=== PATIENT | male | born 2000 | race Caucasian/White ===

== ENCOUNTER 2018-01-23 16:31 | Emergency (ER) | payer BC, SELFPAY ==
[2018-01-23 16:41] VITALS: BP 146/90; PULSE 80; RESP 16; TEMP 36.6; O2SAT 100
--- NOTE | 2018-01-23 17:21 | W.ED.GENAD ---
Discharge Plan Disposition Patient Disposition: AGAINST MEDICAL ADVICE Condition: Good Discharge Details Chief Complaint: Abd Prob Clinical Impression: Abdominal pain Primary Care Provider: Thad Rubio ED Provider: Joe Jennings Home Meds and New Rx's Prescriptions: No Action No Known Home Meds RF: 0 Discharge Instructions Instructions: Abdominal Pain (ED) Additional Instructions: Feel free to return to the emergency department for any new or worsening symptoms including nausea vomiting, fever chills, return of severe persistent abdominal pain. Otherwise follow-up with your primary care provider as needed for reassessment Referrals: Primary Care Provider [Outside] (Care management will assist in arranging a primary care provider for you that you can follow-up with as needed) Discharge Data Discharge Date/Time-TO BE ENTERED AT DEPARTURE: 01/23/18 17:35 Medical Decision Making Patient presenting to the emergency department with complaint of left upper quadrant abdominal pain. Patient states that he had been drinking last night and ate some heavy meals today and while spending time with his mother he started having severe sharp abdominal pain. This seemed to wax and wane and is now resolved but mother was concerned. Patient does state that this happened a couple weeks ago after heavily drinking as well. Patient denies any fever chills, nausea vomiting, pain or discomfort. Palpation of the abdomen is soft and shows a nonsurgical belly but given that discomfort has occurred now twice after heavily drinking there is concern for possible pancreatitis versus gastritis. I would prefer to do lab testing but patient denied any tests or procedures and states that he is only here because his mother wanted him checked out. I discussed the risk versus benefit with both patient and mother and patient states that he is refusing any further testing or treatment and would prefer to go home. Patient was encouraged to return for any new or worsening symptoms. 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 Patient is agreeable to having care management assist in getting him a primary care doctor to follow-up with as needed patient was placed on PCP establishment list. HPI General Mode of arrival: ambulatory. Date/Time Provider Initiated Documentation: 01/23/18 16:50. Limitations to Documentation: no limitations. Information obtained by: patient, family and RN notes reviewed. History of Present Illness 17 year old M presents to the emergency department with the chief complaint of Abd pain, described as mild, with intensity rated at 6. Quality is described as sharp, and is localized to the abdomen. Patient reports no radiation. Patient started experiencing this hour(s) (4) and it has been now resolved. No relieving factors improve symptom(s), No exacerbating factors reported . Patient notes no other symptoms.. Patient did receive the following treatments prior to arrival, none Related Data Home Medications Medication Instructions Recorded Confirmed Unknown [No Known Home Meds] 01/23/18 01/23/18 Allergies Allergy/AdvReac Type Severity Reaction Status Date / Time No Known Allergies Allergy Unverified 01/23/18 16:44 General Stated Complaint: Abd Prob FOREIGN: 3 Review of Systems Constitutional Denies body ache(s), Denies chills and Denies fever(s) Cardiovascular Denies chest pain and Denies dyspnea Respiratory Denies dyspnea Gastrointestinal Reports as per HPI, Reports abdominal pain, Reports belching, Denies diarrhea, Denies nausea and Denies vomiting Genitourinary Denies dysuria, Denies flank pain, Reports penile discharge, Denies testicular pain, Reports urinary frequency and Denies urinary urgency Integumentary/Breasts Denies rash Neurologic Denies confusion and Denies sensory deficit Psychiatric Denies confusion PFSH Social History Smoking/Tobacco Use Status: Never Exam Const General: cooperative, no acute distress and not ill appearing Orientation: alert, awake and oriented x3 HENMT Mouth: moist mucous membranes Resp Effort & Inspection: normal respiratory effort, able to speak in complete sentences and no respiratory distress Auscultation: clear to auscultation bilaterally Cardio Rate: regular rate Rhythm: regular rhythm Heart Sounds: S1 normal and S2 normal GI Inspection: normal to inspection Palpation: soft, no hepatosplenomegaly, not firm, no guarding, no hernias, no masses, no pulsatile masses, not rigid and nontender Auscultation: normal bowel sounds Back/Spine/Pelvis Back: no CVA tenderness Skin General skin exam: no rashes or lesions noted Neuro General: alert, awake, oriented x3, moves all extremities and no focal motor deficits Sensory Exam: no sensory deficits noted Course Vital Signs Temperature 36.6 C 01/23/18 16:41 Pulse 80 01/23/18 16:41 Respiratory Rate 16 01/23/18 16:41 Blood Pressure 146/90 H 01/23/18 16:41 Pulse Oximetry 100 01/23/18 16:41 Temperature 36.6 C 01/23/18 16:41 Temperature Source Temporal Artery Scan 01/23/18 16:41 Pulse 80 01/23/18 16:41 Respiratory Rate 16 01/23/18 16:41 Respiratory Effort 01/23/18 16:45 Blood Pressure 146/90 H 01/23/18 16:41 Blood Pressure Position Sitting 01/23/18 16:41 Pulse Oximetry 100 01/23/18 16:41 Oxygen Delivery Method Room Air 01/23/18 16:41 Oxygen Flow Rate 0 01/23/18 16:41 Pain Level 0 01/23/18 16:41
--- NOTE | 2018-01-23 17:28 | ED.GENADUL_ITS ---
Discharge Plan Disposition Patient Disposition: AGAINST MEDICAL ADVICE Condition: Good Discharge Details Chief Complaint: Abd Prob Clinical Impression: Abdominal pain Primary Care Provider: Thad Rubio ED Provider: Joe Jennings Home Meds and New Rx's Prescriptions: No Action No Known Home Meds RF: 0 Discharge Instructions Instructions: Abdominal Pain (ED) Additional Instructions: Feel free to return to the emergency department for any new or worsening symptoms including nausea vomiting, fever chills, return of severe persistent abdominal pain. Otherwise follow-up with your primary care provider as needed for reassessment Referrals: Primary Care Provider [Outside] (Care management will assist in arranging a primary care provider for you that you can follow-up with as needed) Discharge Data Discharge Date/Time-TO BE ENTERED AT DEPARTURE: 01/23/18 17:35 Medical Decision Making Patient presenting to the emergency department with complaint of left upper quadrant abdominal pain. Patient states that he had been drinking last night and ate some heavy meals today and while spending time with his mother he started having severe sharp abdominal pain. This seemed to wax and wane and is now resolved but mother was concerned. Patient does state that this happened a couple weeks ago after heavily drinking as well. Patient denies any fever chills, nausea vomiting, pain or discomfort. Palpation of the abdomen is soft and shows a nonsurgical belly but given that discomfort has occurred now twice after heavily drinking there is concern for possible pancreatitis versus gastritis. I would prefer to do lab testing but patient denied any tests or procedures and states that he is only here because his mother wanted him checked out. I discussed the risk versus benefit with both patient and mother and patient states that he is refusing any further testing or treatment and would prefer to go home. Patient was encouraged to return for any new or worsening symptoms. 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 Patient is agreeable to having care management assist in getting him a primary care doctor to follow-up with as needed patient was placed on PCP establishment list. HPI General Mode of arrival: ambulatory . Date/Time Provider Initiated Documentation: 01/23/18 16:50 . Limitations to Documentation: no limitations . Information obtained by: patient, family and RN notes reviewed . History of Present Illness 17 year old M presents to the emergency department with the chief complaint of Abd pain, described as mild, with intensity rated at 6. Quality is described as sharp, and is localized to the abdomen. Patient reports no radiation. Patient started experiencing this hour(s) (4) and it has been now resolved. No relieving factors improve symptom(s), No exacerbating factors reported . Patient notes no other symptoms.. Patient did receive the following treatments prior to arrival, none Related Data Home Medications Medication Instructions Recorded Confirmed Unknown [No Known Home Meds] 01/23/18 01/23/18 Allergies Allergy/AdvReac Type Severity Reaction Status Date / Time No Known Allergies Allergy Unverified 01/23/18 16:44 General Stated Complaint: Abd Prob FOREIGN: 3 Review of Systems Constitutional Denies body ache(s), Denies chills and Denies fever(s) Cardiovascular Denies chest pain and Denies dyspnea Respiratory Denies dyspnea Gastrointestinal Reports as per HPI, Reports abdominal pain, Reports belching, Denies diarrhea, Denies nausea and Denies vomiting Genitourinary Denies dysuria, Denies flank pain, Reports penile discharge, Denies testicular pain, Reports urinary frequency and Denies urinary urgency Integumentary/Breasts Denies rash Neurologic Denies confusion and Denies sensory deficit Psychiatric Denies confusion PFSH Social History Smoking/Tobacco Use Status: Never Exam Const General: cooperative, no acute distress and not ill appearing Orientation: alert, awake and oriented x3 HENMT Mouth: moist mucous membranes Resp Effort & Inspection: normal respiratory effort, able to speak in complete sentences and no respiratory distress Auscultation: clear to auscultation bilaterally Cardio Rate: regular rate Rhythm: regular rhythm Heart Sounds: S1 normal and S2 normal GI Inspection: normal to inspection Palpation: soft, no hepatosplenomegaly, not firm, no guarding, no hernias, no masses, no pulsatile masses, not rigid and nontender Auscultation: normal bowel sounds Back/Spine/Pelvis Back: no CVA tenderness Skin General skin exam: no rashes or lesions noted Neuro General: alert, awake, oriented x3, moves all extremities and no focal motor deficits Sensory Exam: no sensory deficits noted Course Vital Signs Temperature 36.6 C 01/23/18 16:41 Pulse 80 01/23/18 16:41 Respiratory Rate 16 01/23/18 16:41 Blood Pressure 146/90 H 01/23/18 16:41 Pulse Oximetry 100 01/23/18 16:41 Temperature 36.6 C 01/23/18 16:41 Temperature Source Temporal Artery Scan 01/23/18 16:41 Pulse 80 01/23/18 16:41 Respiratory Rate 16 01/23/18 16:41 Respiratory Effort 01/23/18 16:45 Blood Pressure 146/90 H 01/23/18 16:41 Blood Pressure Position Sitting 01/23/18 16:41 Pulse Oximetry 100 01/23/18 16:41 Oxygen Delivery Method Room Air 01/23/18 16:41 Oxygen Flow Rate 0 01/23/18 16:41 Pain Level 0 01/23/18 16:41
== END 2018-01-23 17:35 | disposition left against medical advice (07) ==
PROVIDERS: Emergency Provider Nurse Practitioner Family; PCP Internal Medicine
DX: R10.12 Left upper quadrant pain (principal); Z53.29 Procedure and treatment not carried out because of patient's decision for other reasons
CPT/HCPCS: 99281

== ENCOUNTER 2022-03-11 18:25 | Outpatient (REF) | payer BC, SELFPAY ==
[2022-03-13 10:30] LABS: COVID-19 RT-PCR UVMMC Result Presumptive Positive (Negative)
== END 2022-03-11 18:26 | disposition home or self-care (01) ==
LOC: LBN 18:25
PROVIDERS: PCP Internal Medicine; Visit Provider Physician Assistant Medical
DX: J02.9 Acute pharyngitis, unspecified (principal); Z20.822 Contact with and (suspected) exposure to COVID-19
CPT/HCPCS: U0003; 87081